=== PATIENT | female | born 1980 ===

== ENCOUNTER 2018-02-02 17:36 | Emergency (ER) | payer SELFPAY ==
--- NOTE | 2018-02-02 18:40 | ED PDOC ---
Arrival/HPI <Ramon Moar - Last Filed: 02/03/18 00:34> - General Historian: Patient - History of Present Illness Narrative History of Present Illness (Text): 02/02/18 18:39 37 year old female, with past medical history of UTI, presents to the Emergency department complaining of suprapubic abdominal pain associated with dysuria, urinary frequency and hematuria since today. Patient states similar symptoms to past episodes of UTI but more severe. Patient reports history of frequent UTI or possibility of . Patient denies taking any medication for the pain. Patient states her LNMP was January 20. Patient denies any other associated somatic complaints. Patient denies any fevers, chills, headache, dizziness, chest pain, shortness of breath, dyspnea on exertion, cough, nausea, vomiting, diarrhea, back pain, neck pain, vaginal discharge or any other complaints. Time/Duration: 4-6 hours Symptom Onset: Gradual Symptom Course: Unchanged Quality: Aching Activities at Onset: Light Context: Home <Helen Mcmillan - Last Filed: 02/03/18 00:44> <Yasir Mariano - Last Filed: 02/03/18 20:53> - General Chief Complaint: Female Genitourinary Time Seen by Provider: 02/02/18 18:18 Past Medical History - Provider Review Nursing Documentation Reviewed: Yes - Psychiatric Hx Substance Use: No - Anesthesia Hx Anesthesia: No Hx Anesthesia Reactions: No Hx Malignant Hyperthermia: No <Helen Mcmillan - Last Filed: 02/03/18 00:44> Family/Social History - Physician Review Nursing Documentation Reviewed: Yes Family/Social History: No Known Family HX Smoking Status: Never Smoked Hx Alcohol Use: No Hx Substance Use: No <Helen Mcmillan - Last Filed: 02/03/18 00:44> Allergies/Home Meds <Ramon Mora - Last Filed: 02/03/18 00:34> <Helen Mcmillan - Last Filed: 02/03/18 00:44> <Yasir Mariano - Last Filed: 02/03/18 20:53> Allergies/Adverse Reactions: Allergies No Known Allergies Allergy (Verified 02/03/18 14:47) Review of Systems - Physician Review All systems were reviewed & negative as marked: Yes - Review of Systems Constitutional: absent: Fevers Respiratory: absent: SOB, Cough Cardiovascular: absent: Chest Pain Gastrointestinal: Abdominal Pain. absent: Diarrhea, Nausea, Vomiting Genitourinary Female: Dysuria, Frequency, Hematuria, Vaginal Bleeding Musculoskeletal: absent: Back Pain, Neck Pain Neurological: absent: Headache, Dizziness <Helen Mcmillan - Last Filed: 02/03/18 00:44> Physical Exam Vital Signs Temp Pulse Resp BP Pulse Ox 02/02/18 18:53 97.8 F 100 H 18 118/68 100 <Ramon Mora - Last Filed: 02/03/18 00:34> Vital Signs Reviewed: Yes Temperature: Afebrile Blood Pressure: Normal Pulse: Tachycardic Respiratory Rate: Normal Appearance: Positive for: Well-Appearing, Non-Toxic, Comfortable Pain Distress: None Mental Status: Positive for: Alert and Oriented X 3 - Systems Exam Head: Present: Atraumatic Mouth: Present: Moist Mucous Membranes Neck: Present: Normal Range of Motion Respiratory/Chest: Present: Clear to Auscultation, Good Air Exchange. No: Respiratory Distress, Accessory Muscle Use Cardiovascular: Present: Regular Rate and Rhythm, Normal S1, S2. No: Murmurs Abdomen: Present: Tenderness (minimal suprapubic tenderness). No: Distention, Peritoneal Signs, Rebound, Guarding Genitourinary/Pelvic Exam: Present: Normal External Genitalia, Vaginal Bleeding, Cervical os Closed, Other (chaparoned by lalo AGUILAR. ). No: Vaginal Discharge, Vaginal Lesions, Adenexal Tenderness, Adenexal Mass, Cervical Motion Tendernes, Odor Back: Present: Normal Inspection Upper Extremity: Present: Normal Inspection. No: Cyanosis, Edema Lower Extremity: Present: Normal Inspection. No: Edema Neurological: Present: GCS=15, Speech Normal Skin: Present: Warm, Dry, Normal Color. No: Rashes Psychiatric: Present: Alert, Oriented x 3 <Helen Mcmillan - Last Filed: 02/03/18 00:44> Vital Signs Temp Pulse Resp BP Pulse Ox 02/03/18 01:00 99 02/03/18 00:45 90 18 124/78 99 02/02/18 21:37 98.2 F 98 H 18 123/75 100 02/02/18 18:53 97.8 F 100 H 18 118/68 100 <Yasir Mariano - Last Filed: 02/03/18 20:53> Medical Decision Making - Lab Interpretations Lab Results: 02/02/18 20:37 02/02/18 20:37 Lab Results 02/02/18 20:37: WBC 8.2, RBC 4.73, Hgb 13.9, Hct 41.0, MCV 86.7, MCH 29.4, MCHC 33.9, RDW 13.8, Plt Count 321, MPV 9.8, Gran % 82.9 H, Lymph % (Auto) 13.3 L, [place] % (Auto) 3.5, Eos % (Auto) 0.1 L, Baso % (Auto) 0.2, Gran # 6.81 H, Lymph # (Auto) 1.1 L, [place] # (Auto) 0.3, Eos # (Auto) 0.0, Baso # (Auto) 0.02 02/02/18 20:37: Sodium 141, Potassium 4.0, Chloride 105, Carbon Dioxide 24, Anion Gap 16, BUN 15, Creatinine 0.6 L, Est GFR ( Amer) > 60, Est GFR (Non-Af Amer) > 60, Random Glucose 103, Calcium 9.1, Total Bilirubin 0.3, AST 23, ALT 23, Alkaline Phosphatase 68, Total Protein 7.8, Albumin 4.5, Globulin 3.3, Albumin/Globulin Ratio 1.4 02/02/18 18:59: Urine Color Yellow, Urine Appearance Clear, Urine pH 6.0, Ur Spe cific [place] >= 1.030, Urine Protein 30 H, Urine Glucose (UA) Negative, Urine Ketones 15 H, Urine Blood Large H, Urine Nitrate Negative, Urine Bilirubin Negative, Urine Urobilinogen 0.2, Ur Leukocyte Esterase Negative, Urine RBC Tntc, Urine WBC 2 - 5, Ur Epithelial Cells 6 - 8, Amorphous Sediment Few, Urine Bacteria Many, Urine Other Fiber - RAD Interpretation Radiology Orders: 02/02/18 21:05 TRANSVAGINAL [US] Stat <Ramon Mora - Last Filed: 02/03/18 00:34> ED Course and Treatment: 02/02/18 18:45 Impression: 37 year old female presents to the Emergency department complaining of suprapubic abdominal pain, dysuria, hematuria and urinary frequency. Plan: -- Urinalysis, hcG -cbc, cmp -beta hcg -- US -- Reassess and disposition Prior Visits: Notes and results from previous visits were reviewed. Progress Notes: cbc;wnl cmp; wnl beta hcg; negative Ua; + blood, + bacteria US;Findings Uterus Measures 8.6 x 4.3 x 4.8 cm. Normal in size and appearance. No fibroid or other mass lesion seen. Endometrium Measures 11 mm in diameter. Unremarkable. Cervix No cervical abnormality identified. Right ovary Measures 3.2 x 2.6 x 2.9 cm. No solid mass. Normal flow. Cyst measures 1.3 x 0.9 x 1 cm. Left ovary Measures 2.6 x 2 x 2.9 cm. No solid mass. Normal flow. Free fluid No significant free fluid noted. Other Findings None. Impression Right ovarian cyst. No acute pathology. I discussed all results in depth with patient. pt was advised to f/u with PMD and MUD ENGINEER within the next 2 days. pt was advised to take abx as prescribed and Return IMMEDIATELY if symptoms worsen,persist or if new symptoms develop. impression; vaginal bleeding, UTI, ovarian cyst motrin every 6 hours as needed for pain keflex; 1 capsule twice daily x 7 days. increase fluids follow up with the MUD ENGINEER within the next 2 days Follow up with the PMD within the next 2 days. return immediately if symptoms worsen,persist or if new symptoms develop. 02/03/18 00:45 <Helen Mcmillan T - Last Filed: 02/03/18 00:44> - Lab Interpretations Lab Results: 02/02/18 20:37 02/02/18 20:37 Lab Results 02/02/18 23:20: Blood Type B POSITIVE, Antibody Screen Negative, BBK History Checked No verified bt 02/02/18 21:30: Blood Type Confirm B POSITIVE 02/02/18 21:30: PT 12.0, INR 1.05, APTT 32.9 02/02/18 20:37: Beta HCG, Quant < 2.39 02/02/18 20:37: WBC 8.2, RBC 4.73, Hgb 13.9, Hct 41.0, MCV 86.7, MCH 29.4, MCHC 33.9, RDW 13.8, Plt Count 321, MPV 9.8, Gran % 82.9 H, Lymph % (Auto) 13.3 L, [place] % (Auto) 3.5, Eos % (Auto) 0.1 L, Baso % (Auto) 0.2, Gran # 6.81 H, Lymph # (Auto) 1.1 L, [place] # (Auto) 0.3, Eos # (Auto) 0.0, Baso # (Auto) 0.02 02/02/18 20:37: Sodium 141, Potassium 4.0, Chloride 105, Carbon Dioxide 24, Anion Gap 16, BUN 15, Creatinine 0.6 L, Est GFR ( Amer) > 60, Est GFR (Non-Af Amer) > 60, Random Glucose 103, Calcium 9.1, Total Bilirubin 0.3, AST 23, ALT 23, Alkaline Phosphatase 68, Total Protein 7.8, Albumin 4.5, Globulin 3.3, Albumin/Globulin Ratio 1.4 02/02/18 18:59: Urine Color Yellow, Urine Appearance Clear, Urine pH 6.0, Ur Specific [place] >= 1.030, Urine Protein 30 H, Urine Glucose (UA) Negative, Urine Ketones 15 H, Urine Blood Large H, Urine Nitrate Negative, Urine Bilirubin Negative, Urine Urobilinogen 0.2, Ur Leukocyte Esterase Negative, Urine RBC Tntc, Urine WBC 2 - 5, Ur Epithelial Cells 6 - 8, Amorphous Sediment Few, Urine Bacteria Many, Urine Other Fiber - RAD Interpretation Radiology Orders: 02/02/18 21:05 TRANSVAGINAL [US] Stat - Medication Orders Current Medication Orders: Discontinued Medications Cephalexin Monohydrate (Keflex) 500 mg PO STAT STA; Protocol Stop: 02/03/18 00:44 Last Admin: 02/03/18 00:51 Dose: 500 mg <Yasir Mariano - Last Filed: 02/03/18 20:53> - PA / VECTOR CONTROL SPECIALIST / Resident Statement JASON has reviewed & agrees with the documentation as recorded. <Ramon Mora - Last Filed: 02/03/18 00:34> - PA / VECTOR CONTROL SPECIALIST / Resident Statement / has reviewed & agrees with the documentation as recorded. - Scribe Statement The provider has reviewed the documentation as recorded by the Ramonitaibe Mckenna Valladares. All medical record entries made by the Scribe were at my direction and personally dictated by me. I have reviewed the chart and agree that the record accurately reflects my personal performance of the history, physical exam, medical decision making, and the department course for this patient. I have also personally directed, reviewed, and agree with the discharge instructions and disposition. <Helen Mcmillan - Last Filed: 02/03/18 00:44> - PA / VECTOR CONTROL SPECIALIST / Resident Statement / has reviewed & agrees with the documentation as recorded. <Yasir Mariano - Last Filed: 02/03/18 20:53> Disposition/Present on Arrival <Ramon Mora - Last Filed: 02/03/18 00:34> - Present on Arrival Any Indicators Present on Arrival: No History of DVT/PE: No History of Uncontrolled Diabetes: No Urinary Catheter: No History of Decub. Ulcer: No History Surgical Site Infection Following: None - Disposition Have Diagnosis and Disposition been Completed?: Yes Disposition Time: 22:00 Patient Plan: Discharge <Helen Mcmillan - Last Filed: 02/03/18 00:44> <Yasir Mariano - Last Filed: 02/03/18 20:53> - Disposition Diagnosis: Vaginal bleeding, Urinary tract infection, Ovarian cyst Disposition: HOME/ ROUTINE Condition: GOOD Discharge Instructions (ExitCare): Ovarian Cysts, Urinary Tract Infection, Adult (DC) Additional Instructions: motrin every 6 hours as needed for pain keflex; 1 capsule twice daily x 7 days. increase fluids follow up with the MUD ENGINEER within the next 2 days Follow up with the PMD within the next 2 days. return immediately if symptoms worsen,persist or if new symptoms develop. Prescriptions: Cephalexin [Keflex] 500 mg PO BID #14 capsule Ibuprofen [Motrin] 600 mg PO Q6H PRN #20 tab PRN Reason: pain/fever reduction Referrals: Gabriela Moyer MD [Staff Provider] - Follow up with primary Virgen Martinez MD [Medical Doctor] - Follow up with primary [facility] [Outside] - [facility] [[facility]] - Follow up with primary Forms: [employer] (T[place]anian), WORK NOTE
--- NOTE | 2018-02-02 18:41 | ED PDOC ---
Arrival/HPI - General Chief Complaint: Female Genitourinary Time Seen by Provider: 02/02/18 18:18 Historian: Patient Past Medical History - Psychiatric Hx Substance Use: No - Anesthesia Hx Anesthesia: No Hx Anesthesia Reactions: No Hx Malignant Hyperthermia: No Family/Social History Smoking Status: Never Smoked Hx Alcohol Use: No Hx Substance Use: No Allergies/Home Meds Allergies/Adverse Reactions: Allergies No Known Allergies Allergy (Verified 02/02/18 18:07) Disposition/Present on Arrival - Present on Arrival History of DVT/PE: No History of Uncontrolled Diabetes: No Urinary Catheter: No History of Decub. Ulcer: No History Surgical Site Infection Following: None - Disposition
[2018-02-02 18:55] VITALS: RESP 18
[2018-02-02 19:26] LABS: URINE APPEARANCE CLEAR (CLEAR); URINE BILIRUBIN NEGATIVE (NEGATIVE); URINE BLOOD LARGE (NEGATIVE); URINE COLOR YELLOW (YELLOW); URINE GLUCOSE (UA) NEGATIVE (NEGATIVE); URINE LEUKOCYTE ESTERASE NEGATIVE Leu/uL (NEGATIVE); URINE PROTEIN 30 mg/dL (<30 mg/dL); URINE UROBILINOGEN 0.2 E.U./dL (<1 E.U./dL)
[2018-02-02 19:31] LABS: URINE BACTERIA MANY (NEG); URINE RBC TNTC /hpf (0-2)
[2018-02-02 19:32] LABS: URINE AMORPHOUS SEDIMENT FEW
[2018-02-02 20:42] LABS: BASO # 0.02 K/mm3 (0.0-2.0); BASO % 0.2 % (0.0-3.0); EOS % 0.1 % (1.5-5.0); GRAN # 6.81 (1.4-6.5); GRAN % 82.9 % (50.0-68.0); HEMOGLOBIN 13.9 g/dL (12.0-16.0); LYMPH # 1.1 (1.2-3.4); LYMPH % 13.3 % (22.0-35.0); MEAN CELL VOLUME 86.7 fl (80.0-105.0); MEAN CORPUSCULAR HEMOGLOBIN 29.4 pg (25.0-35.0); MEAN CORPUSCULAR HGB CONC 33.9 g/dl (31.0-37.0); MEAN PLATELET VOLUME 9.8 fl (7.0-11.0); MONO # 0.3 (0.1-0.6); MONO % 3.5 % (1.0-6.0); RBC 4.73 10^6/uL (3.5-6.1); RED CELL DISTRIBUTION WIDTH 13.8 % (11.5-14.5); WHITE BLOOD COUNT 8.2 10^3/ul (4.5-11.0)
[2018-02-02 20:54] LABS: ALB/GLOB RATIO 1.4 (1.1-1.8); ALBUMIN 4.5 g/dL (3.0-4.8); ALT/SGPT 23 U/L (7-56); AST/SGOT 23 U/L (14-36); BLOOD UREA NITROGEN 15 mg/dL (7-21); CALCIUM 9.1 mg/dL (8.4-10.5); GFR NON-AFRICAN AMERICAN > 60
[2018-02-02 21:37] VITALS: TEMP 98.2
[2018-02-02 22:15] LABS: INR 1.05
[2018-02-02 22:17] LABS: PARTIAL THROMBOPLASTIN TIME 32.9 Seconds (25.1-36.5)
[2018-02-03 02:10] VITALS: BP 124/78; PULSE 90; O2SAT 99
--- NOTE | 2018-02-03 12:02 | US ---
Date of service: 02/02/2018 HISTORY: vaginal bleeding/pain COMPARISON: None available. TECHNIQUE: Transabdominal and transvaginal pelvic ultrasound was performed with longitudinal and transverse images submitted for interpretation. FINDINGS: UTERUS: Measures 8.4 x 4.3 x 4.8 cm. Normal in size and appearance, anteverted. No fibroid or other mass lesion seen. ENDOMETRIUM: Measures 11.0 mm in diameter. Unremarkable. CERVIX: No cervical abnormality identified. RIGHT OVARY: Measures 3.2 x 2.6 x 2.9 cm. No solid mass. Normal flow. A small simple cyst identified in the right ovary measure 1.3 x 0.9 x 1.0 cm potentially reflecting dominant follicle. LEFT OVARY: Measures 2.6 x 2.0 x 2.9 cm. No solid mass. Normal flow. FREE FLUID: No significant free fluid noted. OTHER FINDINGS: None. IMPRESSION: Simple right ovarian cysts identified as discussed above 1.3 cm greatest dimension with the remainder of the pelvis ultrasound exam otherwise unremarkable. Concordant preliminary report from [facility], 02/02/2018.
== END 2018-02-03 04:31 | disposition home or self-care (01) ==
LOC: MERGE 17:36 → ED 17:36
DX: N39.0 Urinary tract infection, site not specified (principal); N83.201 Unspecified ovarian cyst, right side; N93.9 Abnormal uterine and vaginal bleeding, unspecified